=== PATIENT | female | born 1950 | race Caucasian/White ===

== ENCOUNTER 2022-11-21 21:34 | Emergency (ER) | payer MEDICARE, BC, SELFPAY ==
[2022-11-21 21:35] VITALS: BP 139/60; PULSE 73; PULSE 74; RESP 17; RESP 18; TEMP 36.8; O2SAT 93; O2SAT 96; BMI 23.6
[2022-11-21 22:00] VITALS: PULSE 74; RESP 19; O2SAT 95
[2022-11-21] MEDS: SODIUM CHLORIDE 0.9% 1,000 ML 1000 ML IV (22:00)
[2022-11-21 22:01] VITALS: BP 117/56; PULSE 73; RESP 26; O2SAT 96
[2022-11-21] MEDS: ONDANSETRON 4 MG/2 ML INJ IV (22:02)
[2022-11-21] MEDS: PANTOPRAZOLE 40 MG VIAL IV (22:02)
[2022-11-21 22:22] LABS: Add Manual Diff / Slide Review NO; Basophils Absolute Auto 0 /uL (0-100); Basophils Percent Auto 0.1 % (0-2); Eosinophils Absolute Auto 0 /uL (0-450); Eosinophils Percent Auto 0.2 % (2-4); Hematocrit 34.9 % (36-46); Hemoglobin 11.9 g/dL (12.0-16.0); Lymphocytes Absolute Auto 400 /uL (1100-4500); Lymphocytes Percent Auto 4.3 % (25-40); Mean Corpuscular HGB Conc 34.2 % (30-36); Mean Corpuscular Hemoglobin 29.6 PG (26-34); Mean Corpuscular Volume 86.6 fL (80-100); Monocytes Absolute Auto 700 /uL (0-900); Monocytes Percent Auto 6.7 % (3-14); Neutrophils Absolute Auto 9000 /uL (1500-7000); Neutrophils Percent Auto 88.7 % (50-75); Platelet Count 256 X10^3/uL (150-400); Red Blood Cell Count 4.03 X10^6/uL (4.0-5.2); Red Cell Distribution Width 13.4 % (11.6-14.8); White Blood Cell Count 10.2 X10^3/uL (4.5-11.0)
[2022-11-21 22:30] VITALS: BP 118/54; PULSE 73; RESP 15; O2SAT 95
[2022-11-21 22:32] LABS: Alanine Aminotransferase 20 IU/L (<35); Albumin 3.5 g/dL (3.5-5.0); Albumin Globulin Ratio 1.3 (1.0-2.8); Alkaline Phosphatase 59 U/L (38-126); Aspartate Aminotransferase 22 IU/L (14-36); BUN Creatinine Ratio 27.8 (6-22); Bilirubin Total 0.5 mg/dL (0.2-1.3); Blood Urea Nitrogen 20 mg/dL (7-17); Calcium 8.3 mg/dL (8.4-10.2); Carbon Dioxide 30 mmol/L (22-32); Chloride 102 mmol/L (98-107); Estimated Glomerular Filt Rate > 60 mL/min (>60); Globulin 2.7 g/dL (1.7-4.1); Glucose 133 mg/dL (80-110); HEMOLYSIS < 15 (0-50); Lipase 54 U/L (23-300); Magnesium 1.5 mg/dL (1.6-2.3); Potassium 3.8 mmol/L (3.4-5.1); Sodium 136 mmol/L (137-145); Total Protein 6.2 g/dL (6.3-8.2)
[2022-11-21 22:49] LABS: Ethanol (ETOH) < 10 mg/dL
[2022-11-21 23:00] VITALS: BP 133/61; PULSE 72; RESP 16; O2SAT 95
[2022-11-21] MEDS: MAGNESIUM SULFATE 2 GM/50 ML PIGGYBACK IV (23:21)
[2022-11-21 23:30] VITALS: BP 106/55; PULSE 66; RESP 16; O2SAT 94
--- NOTE | 2022-11-21 23:52 | ED.NAVMDI ---
HPI - Nausea/Vomiting/Diarrhea General Chief complaint: Nausea/Vomiting/Diarrhea Stated complaint: food poison Time Seen by Provider: 11/21/22 21:35 Source: patient and EMS Mode of arrival: EMS History of Present Illness HPI Narrative: 72-year-old female nonsmoker and former drinker with history of remote lymphoma presents by air medical transport for evaluation of multiple episodes of nausea and vomiting and multiple episodes of syncope when changing position. She had been doing fine unwell until consuming seafood this afternoon, and is most concerned about an oyster which tasted ?funny?. She denies any new medications. She denies any headache, blurred vision or sore throat. She has no chest pain or shortness of breath. She denies abdominal pain, diarrhea or urinary complaints such as dysuria, frequency or urgency. She was seen and evaluated on [facility] by EMS and was found to be orthostatic and had a syncopal episode with them. An IV was placed and she was given about 500 cc of lactated Ringer's prior to her arrival. She had been given Zofran prior to arrival as well. Related Data Previous Rx's Medication Instructions Recorded hyoscyamine sulfate 0.125 mg tablet 0.125 mg PO BID-QID PRN dyspepsia 11/22/22 #20 tabs ondansetron 4 mg disintegrating 4 mg PO TID-QID PRN nausea and 11/22/22 tablet vomiting #10 tabs pantoprazole 40 mg tablet,delayed 40 mg PO DAILY #30 tabs 11/22/22 release (Protonix) Allergies Allergy/AdvReac Type Severity Reaction Status Date / Time No Known Drug Allergies Allergy Verified 11/21/22 21:48 Review of Systems Review of Systems Narrative: GENERAL: See HPI HEENT: Denies sinus pain, ear pain, sore throat, difficulty swallowing, dizziness. RESPIRATORY: Denies dyspnea, cough, wheezing, hemoptysis, sputum. CARDIOVASCULAR: Denies chest pain, palpitations, orthopnea, edema, GASTROINTESTINAL: See HPI : Denies dysuria, frequency, incontinence, hematuria, urinary retention. MUSCULOSKELETAL: denies weakness, joint pain, or bony pain SKIN: Denies rash, skin lesions, or other NEUROLOGIC: Denies weakness, headache, numbness, change in speech, confusion, seizures, incoordination. PSYCHIATRIC: No concerning psychosocial issues. 12 point review of systems is negative except for those stated above Patient History Social History Smoking Status: Never smoker Smoking Status: Never smoker alcohol intake frequency: a few times a week Alcohol type: beer and wine Substance Use Type: other Exam Narrative Exam Narrative: GENERAL: [72] year old patient appears stated age. Well-developed patient, in mild distress. HEAD: Atraumatic. Normocephalic. EYES: Pupils equal round and reactive. Extraocular motions intact. No scleral icterus. No injection or drainage. ENT: Nose without bleeding, purulent drainage. Throat without erythema, tonsillar hypertrophy or exudate. Airway patent. NECK: Trachea midline. Non tender CARDIOVASCULAR: Regular rate and rhythm without murmurs, gallops, or rubs. RESPIRATORY: Clear to auscultation. Breath sounds equal bilaterally. No wheezes, rales, or rhonchi. GASTROINTESTINAL: Abdomen soft, non-tender, nondistended. EXTREMITIES: No edema or joint tenderness. BACK: Nontender without deformity or crepitance. No flank tenderness. NEURO: AOx3. SKIN: No rash or erythema of visible areas Initial Vital Signs Initial Vital Signs: Vital Signs Temperature 98.2 F 11/21/22 21:35 Pulse Rate 73 11/21/22 21:35 Respiratory Rate 18 11/21/22 21:35 Blood Pressure 139/60 11/21/22 21:35 Pulse Oximetry 96 11/21/22 21:35 Oxygen Delivery Method Room Air 11/21/22 21:35 Course Orders Ordered: ED Orders 11/21/22 22:09 Complete Blood Count AUTO DIFF Stat Comprehensive Metabolic Panel Stat Ethanol (ETOH) Stat Lipase Stat Magnesium Stat 11/22/22 01:30 Urine Microscopic Stat Discontinued Medications Sodium Chloride (Normal Saline 0.9%) 1,000 mls @ 1,000 mls/hr IV BOLUS ONE Stop: 11/21/22 22:49 Last Infusion: 11/21/22 22:48 Dose: 0 mls/hr Documented By: Admin: 11/21/22 22:00 Dose: 1,000 mls/hr Documented By: TALYA Magnesium Sulfate (Magnesium Sulfate) 2 gm in 50 mls @ 25 mls/hr IV NOW ONE Stop: 11/22/22 01:10 Last Infusion: 11/22/22 01:30 Dose: 0 mls/hr Documented By: DAPHNE Co-signed By: TALYA Admin: 11/21/22 23:21 Dose: 25 mls/hr Documented By: DAPHNE Co-signed By: TALYA Ondansetron HCl (Ondansetron 4 Mg/2 Ml Inj) 4 mg IV NOW ONE Stop: 11/21/22 21:51 Last Admin: 11/21/22 22:02 Dose: 4 mg Documented By: TALYA Ondansetron HCl (Ondansetron 4 Mg Odt Prepack) 1 bottle MISC SEEINSTR ONE Stop: 11/22/22 01:47 Pantoprazole Sodium (Pantoprazole 40 Mg Vial) 40 mg IV NOW ONE Stop: 11/21/22 21:51 Last Admin: 11/21/22 22:02 Dose: 40 mg Documented By: TALYA Reevaluation(s) Reevaluation #1: feeling better, wanting to try ice chips Vital Signs Vital signs: Vital Signs - 8 hr 11/21/22 21:35 11/21/22 21:35 11/21/22 22:00 Temperature 98.2 F Pulse Rate 73 74 74 Respiratory Rate 18 17 19 Blood Pressure 139/60 Pulse Oximetry 96 93 95 Oxygen Delivery Method Room Air 11/21/22 22:01 11/21/22 22:01 11/21/22 22:30 Temperature Pulse Rate 73 Respiratory Rate 26 H Blood Pressure 117/56 L 118/54 L Pulse Oximetry 96 Oxygen Delivery Method 11/21/22 22:30 11/21/22 23:00 11/21/22 23:00 Temperature Pulse Rate 73 72 Respiratory Rate 15 16 Blood Pressure 133/61 Pulse Oximetry 95 95 Oxygen Delivery Method 11/21/22 23:30 11/21/22 23:30 11/22/22 00:00 Temperature Pulse Rate 66 Respiratory Rate 16 Blood Pressure 106/55 L 109/55 L Pulse Oximetry 94 Oxygen Delivery Method 11/22/22 00:00 Temperature Pulse Rate 69 Respiratory Rate 16 Blood Pressure Pulse Oximetry 93 Oxygen Delivery Method MDM - Nausea/Vomiting/Diarrhea Lab Data 11/21/22 22:09 11/21/22 22:09 Labs: Lab Results 11/21/22 11/21/22 11/22/22 Range/Units 22:09 22:09 01:30 WBC 10.2 (4.5-11.0) X10^3/uL RBC 4.03 (4.0-5.2) X10^6/uL Hgb 11.9 L (12.0-16.0) g/dL Hct 34.9 L (36-46) % MCV 86.6 (80-100) fL MCH 29.6 (26-34) PG MCHC 34.2 (30-36) % RDW 13.4 (11.6-14.8) % Plt Count 256 (150-400) X10^3/uL Neut % (Auto) 88.7 H (50-75) % Lymph % (Auto) 4.3 L (25-40) % [place] % (Auto) 6.7 (3-14) % Eos % (Auto) 0.2 L (2-4) % Baso % (Auto) 0.1 (0-2) % Neut # (Auto) 9000 H (5075-6159) /uL Lymph # (Auto) 400 L (1432-3628) /uL [place] # (Auto) 700 (0-900) /uL Eos # (Auto) 0 (0-450) /uL Baso # (Auto) 0 (0-100) /uL Sodium 136 L (137-145) mmol/L Potassium 3.8 (3.4-5.1) mmol/L Chloride 102 (98-107) mmol/L Carbon Dioxide 30 (22-32) mmol/L BUN 20 H (7-17) mg/dL Creatinine 0.72 (0.52-1.04) mg/dL Estimated GFR > 60 (>60) mL/min BUN/Creatinine Ratio 27.8 H (6-22) Glucose 133 H (80-110) mg/dL Calcium 8.3 L (8.4-10.2) mg/dL Magnesium 1.5 L (1.6-2.3) mg/dL Total Bilirubin 0.5 (0.2-1.3) mg/dL AST 22 (14-36) IU/L ALT 20 (<35) IU/L Alkaline Phosphatase 59 (38-126) U/L Total Protein 6.2 L (6.3-8.2) g/dL Albumin 3.5 (3.5-5.0) g/dL Globulin 2.7 (1.7-4.1) g/dL Albumin/Globulin Ratio 1.3 (1.0-2.8) Lipase 54 (23-300) U/L Urine RBC 0-1/hpf (0-5/HPF) Urine WBC None seen (0-5/HPF) Ur Squamous Epith Cells 1-5 /hpf (0-5/HPF) Urine Bacteria Few (2-10) H (None) Hyaline Casts 0-1/lpf (None) Urine Yeast 0-1/hpf (None) Ur Culture Indicated? Cult not indicated Ethyl Alcohol < 10 ( - 10) mg/dL Urine Dip Bedside Urine Glucose Negative Bedside Urine Bilirubin + 1 Bedside Urine Ketone +/- 5 Urine Specific [place] 1.015 Bedside Urine Occult Blood - Negative Bedside Urine pH 6 Bedside Urine Protein - Negative Bedside Urine Urobilinogen - Negative Bedside Urine Nitrite - Negative Bedside Urine Leukocytes - Negative Esterase MDM Narrative Medical decision making narrative: [72] year old patient presents with N/V and syncope with change in position after badfood Multiple etiologies for patient's symptoms considered including, but not limited to: [Gastroenteritis versus electrolyte abnormality versus dehydration versus other] No prior charts available Primary Historian: patient Labs reviewed and interpreted by myself: No leukocytosis or left shift, minimal anemia, sodium, potassium, chloride and CO2 within normal, magnesium slightly low at 1.5 Patient's symptoms improved over duration of stay with above-stated therapies. She is ambulatory in the department, tolerating orals, no longer orthostatic. Findings and discharge diagnosis discussed with patient/family followed by verbalization of understanding Return precautions discussed with patient/family whom verbalize understanding of diagnosis and plan Discharge Plan Departure Patient Disposition: Home Clinical Impression: Vomiting, Acute dehydration, Hypomagnesemia Instructions: DI for Food Poisoning Activity Restrictions/Additional Instructions: *You have been diagnosed with [nausea and vomiting] * As we discussed your history and physical exam as well as labs and imaging are very reassuring. There is no evidence of any severe diagnoses that would require a specific or immediate intervention. *What to do: *Please continue to take your regular medications as directed. *Please follow up with your primary care provider in 2-3 days, call for an appointment. Let them know you were seen in the Emergency Department and that we ask that you be seen in follow up. We will electronically transmit a record of today's note if your PCP is in our system *Please consider a clear liquid diet for the next 24-48 hours and then slowly advance to regular as tolerated. Also, try to avoid alcohol, nicotine, caffeine, spicy, acidic or fatty foods as this may worsen your symptoms *If you do not have a primary care provider please contact the [facility] Resource line at [phone]. They will ask some questions about your medical history and help get you set up with a doctor in the community. *Return to Emergency Department if you should have any new, worsening or concerning symptoms, such as [fever greater than 101 F, shaking chills, worsening pain, persistent vomiting or other bothersome symptoms] Prescriptions: New pantoprazole [Protonix] 40 mg tablet,delayed release (DR/EC) 40 mg PO DAILY Qty: 30 0RF hyoscyamine sulfate 0.125 mg tablet 0.125 mg PO BID-QID PRN (Reason: dyspepsia) Qty: 20 0RF ondansetron 4 mg tablet,disintegrating 4 mg PO TID-QID PRN (Reason: nausea and vomiting) Qty: 10 0RF Stand Alone Forms: Patient Portal/API
[2022-11-22] VITALS (10 sets, daily range): BP systolic 95–136; BP diastolic 53–66; PULSE 64–76; RESP 9–20; TEMP 36.5; O2SAT 92–96
[2022-11-22 01:44] LABS: Bacteria Urine Few (2-10); RBC Urine 0-1/HPF (0-5/HPF); Squamous Epithelial Cell Urine 1-5 /HPF (0-5/HPF); WBC Urine None Seen (0-5/HPF)
[2022-11-22 01:45] LABS: Hyaline Casts Urine 0-1/LPF
[2022-11-22 01:46] LABS: Culture Indicated Urine Cult Not Indicated
[2022-11-22] MEDS: ONDANSETRON 4 MG ODT PREPACK 1 BOTTLE MISC (02:22)
== END 2022-11-22 02:26 | disposition home or self-care (01) ==
PROVIDERS: Emergency Provider Emergency Medicine
DX: R11.2 Nausea with vomiting, unspecified (principal); E86.0 Dehydration; E83.42 Hypomagnesemia
CPT/HCPCS: 36415; 80053; 80320; 81003; 81015; 83690; 83735; 85025; 96361; 96365; 96366; 96375; 99283; 99284; C9113; J2405; J3475